=== PATIENT | female | born 1970 | race Caucasian/White ===

== ENCOUNTER 2024-08-20 00:08 | Day surgery (SDC) | payer BC, SELFPAY ==
[2024-08-16 13:53] VITALS: BMI 23.8
--- NOTE | 2024-08-16 14:02 | PC.NURSE ---
Report to the Outpatient Waiting Room, entrance under the green pavilion located off [facility], at time _1000_ on date _[id number]_. Planned Procedure Time: _1200_.? Time changes happen often and if your time is changed the preop area will call you the afternoon before. - You and your visitor will be asked to self-screen and do not enter if you have any COVID symptoms. Please call surgeon if you need to reschedule. - A mask is optional within the hospital at this time. Patients may have clear liquids (water, carbonated beverages, clear teas, apple juice) until 3 hours prior to surgery with a maximum of 20 ounces. - No food from midnight until time of surgery and no smoking, or chewing tobacco (or any form of nicotine). No chewing gum, candy or mints. Take only the following medications with a SIP of water on the morning of surgery: __None___ DO NOT STOP ANY OF YOUR OTHER PRESCRIPTION MEDICATIONS PRIOR TO SURGERY EXCEPT THE FOLLOWING Hold all vitamins and supplements for 3 days per anesthesiologist. Medications to discontinue per physician Date to take last dose Please no make-up, nail icelandic, hairspray, perfume, deodorant, or body powder the day of surgery.? No jewelry (including any body piercings) or valuables the day of surgery, leave them at home.? Please take a shower or bath the night before, or the morning of, surgery with an antibacterial soap.? Wear comfortable, loose fitting clothing. - Jewelry must be removed prior to entering the operating room.? Rings and piercings that are not removed may be cut off. - The hospital will not accept responsibility for valuables.? - Please leave all valuables, including medications, at home the day of surgery. If you are going home after surgery, a licensed ups driver must drive you home.? - NO public transportation without another adult if you receive anesthesia. - We recommend that an adult stay with you for 24 hours following discharge. - We also recommend that you do not drive, make important decision, drink alcoholic beverages, or take any drugs that were not prescribed by your health care provider for at least 24 hours after your discharge time. Follow any additional instructions given to you from your surgeon. Telephone instructions given to __Penny___and asked if any additional questions and then verbalized understanding. Patient advised to call surgeon office or pre surgery nurse liaison [phone] if any additional questions.
--- OUTSIDE RECORDS SUMMARY | 2024-08-20 00:11 | XMS_ITS | Clinical Summary ---
Author Organization [facility] Address [address] [place] [address] Care Team Providers Care Finisher Accordion Name Role Phone Unavailable Primary Care Provider Unavailabl e Allergies No known active allergies Medications No known medications Active Problems No known active problems Social History Tobacco Use Types Packs/Day Years Used Date Smoking Tobacco: Never Assessed Comments Unknown Sex and Gender Information Value Date Recorded Sex Assigned at Not on file Legal Sex Female 7:59 PM CARE CENTER MANAGER Gender Identity Not on file Sexual Orientation Not on file Last Filed Vital Signs Vital Sign Reading Time Taken Comments Blood Pressure 122/75 03/07/2021 4:01 PM CARE CENTER MANAGER Pulse 83 03/07/2021 4:01 PM CARE CENTER MANAGER Temperature 36.3 C (97.3 F) 03/07/2021 4:01 PM CARE CENTER MANAGER Respiratory Rate 16 03/07/2021 4:01 PM CARE CENTER MANAGER Oxygen Saturation 99% 03/07/2021 4:01 PM CARE CENTER MANAGER Inhaled Oxygen Concentration - - Weight - - Height - - Body Mass Index - - Plan of Treatment Health Maintenance Due Date Last Done Comments DTAP/TDAP/TD VACCINES (1 - Tdap) 01/17/1987 HEPATITIS B VACCINES (1 of 3 - 19+ 3-dose series) 01/17/1987 BREAST CANCER SCREENING 2008 COLORECTAL SCREENING 01/17/2013 Colorectal Cancer Screening 01/17/2013 FIT-DNA Q 3 years 01/17/2013 FIT/FOBT Q 1 year 01/17/2013 Flex Sig/CT Colonography Q 5 years 01/17/2013 ZOSTER VACCINE (1 of 2) 01/17/2018 INFLUENZA VACCINE (#1) 2023 2, 12/28/2019, 01/31/2019, Additional history exists COVID-19 Vaccine (2023-2 5 season) 2023 08/08/2021, 02/10/2021 Insurance [facility]
--- OUTSIDE RECORDS SUMMARY | 2024-08-20 00:11 | XMS_ITS | Continuity of Care Document ---
Author Organization [facility] Address [address] [place] [address] Phone Care Team Providers Care Poultry Inseminator Name Role Phone Volodymyr Solano DO Unavailable Unavailable Allergies, Adverse Reactions, Alerts Substance Reaction Status Criticality No Known Allergies Active No Inform ation Medications Medication Instructions Dosage Effective Dates (start - stop) Status Comments terbinafine HCl 1 % topical cream APPLY 1 APPLICATION TOPICALLY TO THE AFFECTED AREA DAILY UNTIL RESOLUTION UP TO 2 WEEKS - Active BinaxNOW COVID-19 Ag Self Test kit TEST DIRECTED TODAY - Active estradiol 0.05 mg/24 hr semiweekly transdermal patch - Active Procedures Procedure Date Betamethasone acet&sod phosp DRAIN/INJECT JOINT/BURSA OFFICE/OUTPATIENT VISIT EST OFFICE/OUTPATIENT VISIT NEW Advance Directives Directive Yes / No Effective Date File Name No Information Encounters Encounter Description Practice Location Reason(s) For Visit Diagnoses Date Provider Providers Copied on Encounter OFFICE/OUTPAT IENT VISIT EST [facility] , [address], [place], [address], [place] tel:[phone] [facility] elbow (chief complaint) Ulnar collateral ligament sprain of right elbow, initial encounter 2 Xiomara Helm. [address], [place], [place], [id number] , [place]. tel:[phone] Referring Provider: Bear Oakes, Tammy [facility] [address], [place], [address] . tel:[phone] [facility] , [address], [place], [address], [place] tel:[phone] [facility] No Information 2 [facility] Voldoy[facility]r. [address], [place], [place], [id number] , [place]. tel:[phone] OFFICE/OUTPAT IENT VISIT NEW [facility] , [address], [place], [address], [place] tel:[phone] [facility] elbow (chief complaint) Tendinopathy of right elbow 2 [facility] Volodymyr. [address], [place], [place], [id number] , . tel:[phone] Referring Provider: Bear Oakes, [address] [place] [address] [address], [place], [address] . tel:[phone] Family History Family Member Type Diagnosis Age At Onset No Information Payers Payer name Insurance type Covered democrat ID Authorjulia dora(s) Blue Access PPO E2 OT [id number] Social History Type Description Quantity Date Captured Comments Alcohol Use Details Unknown Caffeine Use Details Unknown Tobacco Use Status Current non-smoker Smoking Status Never smoker Sex Female Chief Complaint And Reason For Visit From encounter dated '01/26/2022 13:20'. elbow (chief complaint) Reason For Referral Reason For Referral No Information Plan Of Treatment Date Type Action Status Referral Ordered: MRI JT Upper w/o Contrast RT elbow ordered History Of Present Illness Encounter Date Complaint History Of Prese nt Illness Comments: Lori is a 52-year-old female who presents today for an evaluation of medial elbow pain with activity; however not at rest. elbow Comments: Lori Duke is a 51-year-old, right-hand dominant female who presents for right elbow pain. The patient reports elbow pain for greater than ten years. She denies any known injury. The patient denies taking any mediation for pain relief. She was recently diagnosed with osteopenia by a DEXA scan. The patient is unsure if they checked her vitamin D level. She currently takes an unknown amount calcium and she denies taking any vitamin D. After having a liver biopsy performed, she became vasovagal. The patient is postmenopausal. The patient played softball as a teenager in high school. 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 elbow Functional Status Date Functional Assessmen t No Information Instructions Date Instruction Additional Infor mation Right medial elbow p ain.Treatment today consists of an injection. 1 cc of Betamethasone over the distal humerus with gentle needling of the medial LCL. Activity modification for the next 3 weeks. The patient will follow-up with me in 6 weeks if her pain is not improving. We discussed PRP. The medical record documentation of this provider's service encounter was entered by Krys Gardner, acting as Director Design for Volodymyr Solano DO.The documentation recorded by the medical office worker accurately reflects the evaluation, management, and related clinical services I personally performed. The plan and decisions were made by me. Related to Ulnar collateral ligament sprain of right elbow, initial encounter We will schedule an MRI of the right elbow. The medical record documentation of this provider's service encounter was entered by Jacqueline Santiago, acting as Director Design for Volodymyr Solano DO.The documentation recorded by the medical office worker accurately reflects the evaluation, management, and related clinical services I personally performed. The plan and decisions were made by me. Related to Tendinopathy of right elbow Assessments Type Assessment Date assessment Ulnar collateral lig ament sprain of right elbow, initial encounter Patient Care Teams Name Effective Dates (start - stop) Status Members No Information
--- OUTSIDE RECORDS SUMMARY | 2024-08-20 00:11 | XMS_ITS | Referral Summary ---
Author Organization [facility] [address] Address [facility] [place] [address] Care Team Providers Care Musical Instruments Assembler Name Role Phone Jarvis Caldwell MD Primary Care Provi farhad Allergies No known active allergies Medications No known medications Active Problems No known active problems Immunizations Immunization Administration Dates Next Due Td, adsorbed 12/18/1997 Social History Tobacco Use Types Packs/Day Years Used Date Smoking Tobacco: Never Assessed Alcohol Use Standard Drinks/Week Comments Yes 0 (1 standard drink = 0.6 oz pur e alcohol) Comments Unknown Sex and Gender Information Value Date Recorded Sex Assigned at Not on file Legal Sex Female 11:58 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 Gender Identity Not on file Sexual Orientation Not on file Last Filed Vital Signs Vital Sign Reading Time Taken Comments Blood Pressure 124/80 05/21/2021 10:30 AM LIQUID 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 Pulse 66 05/21/2021 10:30 AM LIQUID 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 Temperature 36.5 C (97.7 F) 05/21/2021 10:30 AM LIQUID 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 Respiratory Rate 16 05/21/2021 10:30 AM LIQUID 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 Oxygen Saturation 100% 05/21/2021 10:30 AM LIQUID 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 Inhaled Oxygen Concentration - - Weight 63.5 kg (140 lb) 05/21/2021 10:30 AM LIQUID 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 Height 165.1 cm (5' 5) 05/21/2021 10:30 AM LIQUID 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 Body Mass Index 23.3 05/21/2021 10:30 AM LIQUID 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 Plan of Treatment Not on file Insurance [employer] [place] Care Teams Musical Instruments Assembler Relationship Specialty Start Date End Date Jarvis Caldwell MD PCP - General 09/29/09
--- OUTSIDE RECORDS SUMMARY | 2024-08-20 00:11 | XMS_ITS | Clinical Summary ---
Author Organization [facility] [address] Address [facility] [place] [address] Care Team Providers Care Set And Exhibit Designer Name Role Phone Jarvis Caldwell MD Primary Care Provi farhad Allergies No known active allergies Medications No known medications Active Problems No known active problems Immunizations Immunization Administration Dates Next Due Td, adsorbed 12/18/1997 Surgical History Surgery Date Site/Laterality Comments HYSTERECTOMY Hysterectomy Social History Tobacco Use Types Packs/Day Years Used Date Smoking Tobacco: Never Assessed Alcohol Use Standard Drinks/Week Comments Yes 0 (1 standard drink = 0.6 oz pur e alcohol) Comments Unknown Sex and Gender Information Value Date Recorded Sex Assigned at Not on file Legal Sex Female 11:58 AM AUTO 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 Gender Identity Not on file Sexual Orientation Not on file Obstetrics History Last Filed Vital Signs Vital Sign Reading Time Taken Comments Blood Pressure 124/80 05/21/2021 10:30 AM AUTO GARAGE ATTENDANT Pulse 66 05/21/2021 10:30 AM AUTO GARAGE ATTENDANT Temperature 36.5 C (97.7 F) 05/21/2021 10:30 AM AUTO GARAGE ATTENDANT Respiratory Rate 16 05/21/2021 10:30 AM AUTO GARAGE ATTENDANT Oxygen Saturation 100% 05/21/2021 10:30 AM AUTO GARAGE ATTENDANT Inhaled Oxygen Concentration - - Weight 63.5 kg (140 lb) 05/21/2021 10:30 AM AUTO GARAGE ATTENDANT Height 165.1 cm (5' 5) 05/21/2021 10:30 AM AUTO GARAGE ATTENDANT Body Mass Index 23.3 05/21/2021 10:30 AM AUTO GARAGE ATTENDANT Plan of Treatment Health Maintenance Due Date Last Done Comments Breast Cancer Screening-Mammogram 1968 Colon Cancer Screening-Colonoscopy 1968 Depression Screening 1968 Hepatitis C Screening 1968 Regular Well Visit/Exam 18-64 01/17/1986 DTaP/Tdap/Td Vaccine (1 - Tdap) 12/19/1997 12/18/1997 Zoster Vaccine (1 of 2) 01/17/2018 Covid-19 Vaccine (2 - 2023-2 5 season) 2023 02/10/2021 Influenza Vaccine (Season Ended) 2024 02/10/2021 Hepatitis B Screening Completed 05/15/2021 , 04/09/2021 Pneumococcal vaccine <65 Aged Out No longer eligible based on patient's age to complete this topic Insurance [facility] Care Teams Set And Exhibit Designer Relationship Specialty Start Date End Date Jarvis Caldwell MD PCP - General 09/29/09
--- OUTSIDE RECORDS SUMMARY | 2024-08-20 00:11 | XMS_ITS | Clinical Summary ---
Author Organization [facility] Address [address] [place] [address] Care Team Providers Care Supervisor Pig Machine Name Role Phone Beckie Roldan RN Unavailable Unavailable Boris Dumont MD Unavailable [phone] Gloria Green MD Primary Care Provider [phone] Source Comments [facility],non-owned Affiliates and Associated Physician Practices is amultiple site organization consisting of ambulatory clinics and hospital sitesin [place], [place], [place] and [place]. This disclosure is being madepursuant to the Care Everywhere program and may not contain all information available regarding this patient. Last updated 17.[facility] Allergies No known active allergies Medications * Be aware that medications may not be up to date on this document. Alwaysverify current medications with the patient. estradiol (Vivelle-Dot) 0.05 MG/24HR patch APPLY 1 PATCH TOPICALLY TO THE SKIN 2 TIMES EVERY WEEK 2 Active Aspirin 81 MG CAPS Take 1 capsule by mouth once daily Active albuterol HFA (Proventil; Ventolin; Proair) 108 (90 Base) MCG/ACT inhaler Inhale 2 (two) puffs by mouth every 6 hours as needed for Shortness of Breath, Wheezing or Cough 8 g 3 Active Active Problems Problem Noted Date Diagnosed Date History of adenomatous polyp of colon - multiple polyps, large polyps 01/15/2022 Overview (01/15/2022): Dr. Bowden/GI 01/09 x3 (13 mm mid ascending, piecemeal, tattooed) Elevated liver enzymes 02/25/2021 Overview (11/24/2021): Per her report, noted since summer03/24/2021 US normal. U/S elastography with Median liver stiffness 6.46 kPa, average is 5.7kPa (mild-moderate) 05/22/2021 Liver Biopsy - Minimal histologic alterations, No cirrhosis or significant fibrosis 11/24/2021 Fibroscan CAP 191, LSM 3.9 kPa Encounters Date Type Department Care Team Description 08/06/2024 Telephone [facility] - Family Medicine [address] [place] [phone] Malika Rand PA-C Appointment (Pt has upcoming well appt with you, and is asking to go to [facility] to have labs drawn prior to appointment. Can you put order in for quest, or would you prefer to see her first and place order during appt? Please advise.) 07/17/2024 Orders Only [facility] - GI [address] [place] [address] Justo Bowden MD Hx of colonic polyp 06/18/2024 2:54 PM CDT - 06/18/2024 11:59 PM CDT Hospital Encounter [facility] - Ultrasound [address] [place] [phone] Gloria Green MD Discharge Disposition: Home or Self Care 06/18/2024 2:18 PM CDT - 06/18/2024 2:53 PM CDT Hospital Encounter [facility] Breast Care [address] [place] [phone] Gloria Green MD Discharge Disposition: Home or Self Care 06/14/2024 Travel from Last 3 Months Immunizations Immunization Administration Dates Next Due INFLUENZA VACCINE, QUADR. (F LUZONE; FLULAVAL; FLUARIX; AFLURIA QUADRIVALENT; 6MO+), 0.5 ML (IIV4) 02/10/2021 Td (Adult), 2 Lf Tetanus Toxoid, Adsorbed, Pf Family History * Patient is adopted Medical History Relation Name Comments Cancer - Colon Neg Hx Colon polyps Neg Hx Malignant Hyperthermia Neg Hx Social History Tobacco Use Types Packs/Day Years Used Date Smoking Tobacco: Never Smokeless Tobacco: Never Tobacco Cessation:Counseling Given: Not Answered Alcohol Use Standard Drinks/Week Comments Yes 14 (1 standard drink = 0.6 oz pu re alcohol) PHQ-2 Answer Date Recorded PHQ2 TOTAL SCORE 0 05/09/2022 Comments No Sex and Gender Information Value Date Recorded Sex Assigned at Female 02/20/2021 6:46 AM SENIOR NATIONAL ACCOUNT MANAGER Legal Sex Female 9:51 AM SENIOR NATIONAL ACCOUNT MANAGER Gender Identity Female 02/20/2021 6:46 AM SENIOR NATIONAL ACCOUNT MANAGER Sexual Orientation Not on file Last Filed Vital Signs Vital Sign Reading Time Taken Comments Blood Pressure 141/78 05/09/2022 11:20 AM SENIOR NATIONAL ACCOUNT MANAGER Pulse 88 05/09/2022 11:20 AM SENIOR NATIONAL ACCOUNT MANAGER Temperature 36.2 C (97.2 F) 05/09/2022 11:20 AM SENIOR NATIONAL ACCOUNT MANAGER Respiratory Rate 16 05/09/2022 11:20 AM SENIOR NATIONAL ACCOUNT MANAGER Oxygen Saturation 100% 05/09/2022 11:20 AM SENIOR NATIONAL ACCOUNT MANAGER Inhaled Oxygen Concentration - - Weight 65.3 kg (144 lb) 06/18/2024 2:37 PM CDT Height 165.1 cm (5' 5) 06/18/2024 2:37 PM CDT Body Mass Index 23.96 06/18/2024 2:37 PM CDT Plan of Treatment Upcoming Encounters Date Type Department Care Team (Late st Contact Info) Description 08/24/2024 9:30 AM CDT Procedure visit [facility] - GI [address] [place] [address] 09/05/2024 1:00 PM CDT Office Visit [facility] - Family Medicine [address] [place] [phone] Malika Rand PA-C [address] [place] [phone] Health Maintenance Due Date Last Done Comments COLOGUARD (AGES 45-75) - COLON CA SCREENING 1970 CT COLONOGRAPHY - COLON CA SCREENING 1970 FIT - COLON CA SCREENING 1970 FLEX SIG - COLON CA SCREENING 1970 LIPID TESTING 1970 HIV SCREENING 01/17/1983 HEPATITIS B VACCINE (1 of 3 - 19+ 3-dose series) 01/17/1987 DTAP/TDAP/TD VACCINES (1 - Tdap) 12/19/1997 12/18/1997 PNEUMOCOCCAL VACCINE 50+ (1 of 1 - PCV) 01/17/2018 ZOSTER VACCINE (1 of 2) 01/17/2018 PAP SMEAR 05/08/2022 05/08/2019, 05/08/2019 COLON MONITORING 01/15/2023 01/15/2022, 01/15/2022 Colorectal Cancer Screening 01/15/2023 COVID-19 VACCINE ( season) 2023 08/08/2021, 02/10/2021, 06/06/2020, Additional history exists DEPRESSION SCREENING 03/21/2024 05/09/2022 MAMMOGRAM 06/18/2026 06/18/2024, 12/20, 11/06/2021, Additional history exists COLONOSCOPY - COLON CA SCREENING 01/16/2032 01/15/2022 HEPATITIS C SCREENING Completed 04/15/2021 INFLUENZA VACCINE Completed 02/02/2024, , 02/10/2021, Additional history exists HIB VACCINE Aged Out No longer eligi ble based on patient's age to complete this topic HPV VACCINE Aged Out No longer eligi ble based on patient's age to complete this topic MENINGOCOCCAL (Group B) VACCINE SHARED DECISION-MAKING Aged Out No longer eligible based on patient's age to complete this topic MENINGOCOCCAL GROUPS A/C/Y/W VACCINE Aged Out No longer eligible based on patient's age to complete this topic Goals Goal Patient Goal Type Associated Problems Recent Progress Patient-Stated? Author Medication Management General On track( 022 2:48 PM SENIOR NATIONAL ACCOUNT MANAGER) No Beckie Roldan RN Note: Expected end date: ongoing Interventions: Take all medications as prescribed Procedures Procedure Name Priority Date/Time Associated Diagnosis Comments US BREAST RIGHT LTD Routine 06/18/2024 2:59 PM CDT Mass of right breast, unspecified quadrant MAMMO BILAT DIAGNOSTIC W GIANFRANCO Routine 06/18/2024 2:40 PM CDT Mass of right breast, unspecified quadrant ENDOSCOPY, COLON, SCREENING Routine 01/15/2022 Screen for colon cancer HEPATITIS C AB W/RFLX TO HCV RNA QN PCR Routine 04/15/2021 11:37 AM SENIOR NATIONAL ACCOUNT MANAGER Elevated liver enzymes Hepatic fibrosis from Last 3 Months or Most Recently Relevant to Health Maintenance Results * US BREAST RIGHT LTD (most commonly ordered,not the whole breast) (06/18/2024 2:59 PM CDT) Anatomical Region Laterality Modality Breast Right Ultrasound 06/18/2024 2:45 PM CDT Impressions 06/18/2024 3:18 PM CDT IMPRESSION: No mammographic or sonographic evidence of malignancy. No imaging explanation for the reported signs/symptoms. OVERALL BI-RADS ASSESSMENT: BI-RADS Category 1: Negative Examination Recommendation: Routine yearly mammography schedule for women over age 40 or return sooner if clinically indicated. Edited by Nayla Wills on 06/18/2024 3:02 PM > Interpreting Provider: Aubrey Newby MD on 06/18/2024 3:18 PM Narrative 06/18/2024 3:18 PM CDT PROCEDURE: MAMMO BILAT DIAGNOSTIC W GIANFRANCO, US BREAST RIGHT LTD CLINICAL INFORMATION (none relevant/not provided if blank): Indication: N63.10: Unspecified lump in the right breast, unspecified quadrant Additional History: Most recent comparison: 2022. TECHNIQUE: MAMMO BILAT DIAGNOSTIC W GIANFRANCO, US BREAST RIGHT LTD 1. Diagnostic mammography including 3D mammographic tomosynthesis imaging was performed. Images were interpreted with CAD. Standard views include at minimum: CC and MLO. 2. Real-time ultrasound of the breast(s) with DICOM image capture as performed by the technologist and supervised by radiologist. This is a focused examination and not a breast screening protocol. FDA recommends a single BI-RADS assessment for same day multi-modality imaging. To facilitate optimal patient care, this single report includes interpretation of multiple exams: see appropriate subsections. FINDINGS: 1. MAMMOGRAPHY: Breast composition: The breasts are heterogeneously dense, which may obscure small masses. No suspicious microcalcifications, masses or areas of architectural distortion. There are non suspicious punctate and coarse calcifications; these reduce exam sensitivity for detection of new or developing suspicious microcalcifications. 2. ULTRASOUND 2:00-4:00 was interrogated. No suspicious cystic, solid or inflammatory appearing lesions identified with this technique. us Gloria Green MD US ORDERABLES Final Result * Mammo Bilat Diagnostic W Gianfranco (06/18/2024 2:40 PM CDT) Anatomical Region Laterality Modality Breast Bilateral Mammography 06/18/2024 2:45 PM CDT Impressions 06/18/2024 3:18 PM CDT IMPRESSION: No mammographic or sonographic evidence of malignancy. No imaging explanation for the reported signs/symptoms. OVERALL BI-RADS ASSESSMENT: BI-RADS Category 1: Negative Examination Recommendation: Routine yearly mammography schedule for women over age 40 or return sooner if clinically indicated. Edited by Nayla Wills on 06/18/2024 3:02 PM > Interpreting Provider: Aubrey Newby MD on 06/18/2024 3:18 PM Narrative 06/18/2024 3:18 PM CDT PROCEDURE: MAMMO BILAT DIAGNOSTIC W GIANFRANCO, US BREAST RIGHT LTD CLINICAL INFORMATION (none relevant/not provided if blank): Indication: N63.10: Unspecified lump in the right breast, unspecified quadrant Additional History: Most recent comparison: 2022. TECHNIQUE: MAMMO BILAT DIAGNOSTIC W GIANFRANCO, US BREAST RIGHT LTD 1. Diagnostic mammography including 3D mammographic tomosynthesis imaging was performed. Images were interpreted with CAD. Standard views include at minimum: CC and MLO. 2. Real-time ultrasound of the breast(s) with DICOM image capture as performed by the technologist and supervised by radiologist. This is a focused examination and not a breast screening protocol. FDA recommends a single BI-RADS assessment for same day multi-modality imaging. To facilitate optimal patient care, this single report includes interpretation of multiple exams: see appropriate subsections. FINDINGS: 1. MAMMOGRAPHY: Breast composition: The breasts are heterogeneously dense, which may obscure small masses. No suspicious microcalcifications, masses or areas of architectural distortion. There are non suspicious punctate and coarse calcifications; these reduce exam sensitivity for detection of new or developing suspicious microcalcifications. 2. ULTRASOUND 2:00-4:00 was interrogated. No suspicious cystic, solid or inflammatory appearing lesions identified with this technique. us Gloria Green MD MAMMO ORDERABLES Final Result * ENDOSCOPY, COLON, SCREENING (01/15/2022) us Justo Bowden MD GI PROCEDURE ORDERABLES Final Result [facility] RESULT SCAN * HEPATITIS C AB W/RFLX TO HCV RNA QN PCR (04/15/2021 11:37 AM SENIOR NATIONAL ACCOUNT MANAGER) Hepatitis C Antibody NON-REACTI VE NON-REACT [facility] Signal to Cut-Off 0.01 <1.00 [facility] Comment: HCV antibody was non-reactive. There is no laboratory evidence of HCV infection. In most cases, no further action is required. However, if recent HCV exposure is suspected, a test for HCV RNA (test code 65280) is suggested. For additional information please refer to http://education.Praedicat/faq/RNF17g0 (This link is being provided for informational/ educational purposes only.) REPORT COMMENT: FASTING:NO Test Performed at: [facility] [address] [place] [address] WESTON MONGE DO,MPH Blood BLOOD SPECIMEN / Unknown 04/15/2021 11:37 AM SENIOR NATIONAL ACCOUNT MANAGER 04/15/2021 11:40 AM SENIOR NATIONAL ACCOUNT MANAGER Boris Dumont MD LAB - CHEMISTRY ORDERABLES Fi nal Result [facility] [address] [place] [address] from Last 3 Months or Most Recently Relevant to Health Maintenance Insurance ANTHEM ANTHEM Care Teams Supervisor Pig Machine Relationship Specialty Start Date End Date Gloria Green MD [address] [place] [id number] PCP - General Obstetrics and Gynecology 06/18/24 Beckie Roldan, RN Registered Nurse 02/25/21 Boris Dumont MD [address] [place] [phone] Skilled Nursing Case Manager Gastroenterology 02/25/21
[2024-08-20 10:45] VITALS: BP 123/84; PULSE 71; RESP 14; TEMP 36.6; O2SAT 100
--- NOTE | 2024-08-20 11:31 | WPDANESEPPF ---
Anes - Initial Pre Proc Eval Procedure: Operation Date: 08/20/24 12:00 Proposed Procedures p Excision Left Forearm Masses Times Two, Left Thigh Mass Times Five - Arvind Askew DO Date/Time: 08/20/24 11:31 Surgeon: Arvind Askew DO Pre Op Diagnosis: Lt Forearm Mass 2(1.2cm)(1.5) Lt Thigh Mass x5 Patient Data Age: 54 Gender: F Height: 1.65 m Weight: 66.9 kg Last Vital Signs Temp 36.6 C 08/20/24 10:45 Pulse 71 08/20/24 10:45 Resp 14 08/20/24 10:45 BP 123/84 08/20/24 10:45 Pulse Ox 100 08/20/24 10:45 Allergies Allergy/AdvReac Type Severity Reaction Status Date / Time No Known Allergies Allergy Verified 08/20/24 10:54 Home Medications ?Medication ?Instructions ?Recorded ?Confirmed ?Type aspirin 81 mg tablet,delayed 81 mg PO DAILY 07/16/24 08/20/24 History release (Adult Aspirin Regimen) estradiol 0.05 mg/24 hr semiweekly 1 patch transdermal 2XW 07/16/24 08/16/24 History transdermal patch (Marilu) fexofenadine 180 mg tablet 180 mg PO DAILY 08/16/24 08/16/24 History (Lucina Allergy) Patient hx anesthesia problems: none Family hx anesthesia problems: none Results Review: All pre-operative results and documents have been reviewed as part of the pre-operative evaluation. [facility] Past Medical History Medical History Fatty liver Surgical History Surgical History Hx of hysterectomy 2001 Social History Social History Smoking status: Never smoker Alcohol intake: current Drinks per week: 7 Alcohol use details: 7 full 8-14/ week Substance use: never Current Housing: Decline to Answer Concerned About Future Housing: Decline to Answer Difficulty Paying Gas/Electric Bills: Decline to Answer Difficulty Paying for Meds: Decline to Answer Currently Unemployed: Decline to Answer Difficulty w/ Childcare or Family Care: Decline to Answer Occupation/Education: occupation Anes - Eval Final PreProcedure Day of Procedure 08/20/24 11:31 Patient weight: normal Heart: regular rate and rhythm Lungs: clear to auscultation Airway: Mallampati scale class II Neurological: alert and oriented Last oral intake: >/= 8 hours ASA classification: II Emergent: no Anesthetic plan: proceed Anesthesia type and monitoring: general GIVS and standard monitoring Results Review: All pre-operative results and documents have been reviewed as part of the pre-operative evaluation. Informed Consent: The patient's anesthetic plan and its attendant risks and benefits were discussed with the patient/family/POA. Questions were solicited and answers provided to the satisfaction of the patient/family/POA.
[2024-08-20] MEDS: LACTATED RINGERS 1,000 ML 30 ML IV CONT ×2 (11:50→13:33)
--- NOTE | 2024-08-20 11:55 | P.HP_ITS ---
H&P: HPI History of Present Illness Date/Time: 08/20/24 11:55 Chief Complaint: left arm and left leg masses Narrative: 54 yo woman presents for excision of multiple masses. She was seen and preop and all masses were identified and confirmed with patient. There are a total of 3 left forearm masses and 6 left thigh masses. She reports no other changes since seen in office. Review of Systems Review of Systems: All systems reviewed & are unremarkable except as noted in HPI and below Constitutional: Constitutional: Denies chills, Denies fever(s), Denies headache(s) and Denies weight loss Eyes: Eyes: Denies change in vision ENT: Denies dizziness, Denies headache(s), Denies neck mass and Denies throat swelling Cardiovascular: Cardiovascular: Denies chest pain, Denies lightheadedness and Denies dyspnea Respiratory: Respiratory: Denies cough, Denies dyspnea and Denies wheezing Gastrointestinal: Gastrointestinal: Denies abdominal pain, Denies change in bowel habits, Denies nausea and Denies vomiting Genitourinary: Genitourinary: Denies hematuria and Denies dysuria Musculoskeletal: Musculoskeletal: Reports as per HPI Integumentary/Breasts: Skin/Breast: Reports as per HPI Neurologic: Denies dizziness and Denies headache(s) Allergic/Immunologic: Allergic/Immunologic: Denies throat swelling and Denies wheezing [facility] Past Medical History Medical History Fatty liver Surgical History Surgical History Hx of hysterectomy 2001 Social History Social History Smoking status: Never smoker Alcohol intake: current Drinks per week: 7 Alcohol use details: 7 full 8-14/ week Substance use: never Current Housing: Decline to Answer Concerned About Future Housing: Decline to Answer Difficulty Paying Gas/Electric Bills: Decline to Answer Difficulty Paying for Meds: Decline to Answer Currently Unemployed: Decline to Answer Difficulty w/ Childcare or Family Care: Decline to Answer Occupation/Education: occupation Meds Home Medications and Allergies Home Medications ?Medication ?Instructions ?Recorded ?Confirmed ?Type aspirin 81 mg tablet,delayed 81 mg PO DAILY 07/16/24 08/20/24 History release (Adult Aspirin Regimen) estradiol 0.05 mg/24 hr semiweekly 1 patch transdermal 2XW 07/16/24 08/16/24 History transdermal patch (Marilu) fexofenadine 180 mg tablet 180 mg PO DAILY 08/16/24 08/16/24 History (Lucina Allergy) Allergies Allergy/AdvReac Type Severity Reaction Status Date / Time No Known Allergies Allergy Verified 08/20/24 10:54 Vital Signs Vital Signs - 24 hr 08/20/24 10:45 Temperature 98 F Pulse Rate 71 Respiratory Rate 14 Blood Pressure 123/84 Pulse Oximetry 100 Exam Const: General: no acute distress and alert Orientation/consciousness: patient oriented x3 HENMT: Head: normocephalic and atraumatic Ears: hearing grossly normal bilaterally Face/Nose/Sinus: Normal nares present Mouth: Yes Normal oral and palatal mucosa present Eyes: Periorbital: periorbital findings normal Sclera: sclerae normal EOM: EOMs intact bilaterally Neck: Neck: normal visual inspection, no lymphadenopathy and trachea midline Chest: Chest palpation & inspection: normal inspection of the chest Resp: Effort & Inspection: normal respiratory effort Auscultation: clear to auscultation bilaterally Cardio: Jugular venous distension: no JVD Rate: regular rate Rhythm: regular rhythm Heart sounds: S1 normal heart sound present and S2 normal heart sound present Peripheral pulses: Peripheral pulses 2+ throughout GI: Inspection: normal to inspection GI Palp: Yes Soft to palpation, No Tenderness to palpation present (GI), No Guarding due to palpation present (GI) and No Rebound tenderness present Percussion: Yes normal to percussion Auscultation: normal bowel sounds : General: Yes no CVA tenderness Back/Spine/Pelvis: Back: no CVA tenderness Skin: Other: multiple masses on left forearm ranging in size from 0.5cm to 1.5cm. Multiple masses on left thigh ranging from 0.5cm to 3.5cm. All consistent with lipomas. Neuro: General: patient oriented x3, no focal motor deficits and CN's II-XI intact bilaterally Cognition (Neuro): normal cognition Speech: normal speech Motor exam (neuro): 5/5 motor strength present throughout Extrem: General: capillary refill normal and no clubbing, cyanosis or edema Assessment and Plan Assessment and plan (1) Subcutaneous mass of left forearm: Code(s): R22.32 - Localized swelling, mass and lump, left upper limb Status: Acute Assessment and Plan: I have recommended excision of left forearm mass x3 and left thigh mass x6. I have discussed the procedure, risks, benefits, and alternatives with the nick mckenna. All questions answered. No changes since last seen in office. (2) Mass of left thigh: Code(s): R22.42 - Localized swelling, mass and lump, left lower limb Status: Acute
--- NOTE | 2024-08-20 11:55 | WPDHPUPDATE1 ---
History and Physical Update Update Date/Time: 08/20/24 11:55 History and Physical has been reviewed, including an updated exam of the patient. There are NO changes in the patient's condition. Risks, benefits, and alternatives have been discussed and questions answered. Patient agrees to proceed with procedure.
[2024-08-20] MEDS: ceFAZolin 2 GM/D5W 50 ML 2 GM/50 ML BAG IVPB (12:05)
[2024-08-20] MEDS: LIDO 1%/EPINEPHRINE 1:100,000 50 ML VIAL 30 ML INFILTRATE (12:05)
--- NOTE | 2024-08-20 12:32 | S_PTH ---
PATIENT: Lori Duke LOC: [facility] U#:[id number] AGE/SX: 54/F ROOM: RE08/20/[address]: Arvind Askew DO : 1970 BED: DIS: 08/20/2024 SPEC #: [id number] RECD: 08/20/24 14:13 STATUS: JANESSA REQ #: [id number] BREN: 08/20/24 12:[address]: Arvind Askew DEPT: [facility] Surgical RECD BY: Linda Platt ENTERED: 08/20/24 14:13 SP TYPE: Surgical OTHR DR: OPERATING SYSTEMS PROGRAMMER PHYSICIAN Tissues: A - Mass B - Mass Procedures: Hematoxylin and Eosin Stain Gross and Microscopic Level 3
--- NOTE | 2024-08-20 13:28 | P.OP_ITS ---
Procedure Note - Detailed Date of Procedure 08/20/24 Pre-op Diagnosis Left forearm mass x3, left thigh mass x6 Post-op Diagnosis Same Procedure Performed 1. Excision of 5 cm left leg mass 2. Excision of 2 cm left leg mass x5 3. Excision of 2 cm left arm mass 4. Excision of 1.5 cm left arm mass x2 Surgeon Arvind Askew, DO Anesthesia MAC and Local (1% lidocaine with epinephrine) Indications This is a 54-year-old woman who presented with multiple painful nodules under her skin. She has 3 areas her left forearm that are small benign tumors consistent with lipomas. She also identified 6 areas in preop on her left leg that also appeared to be small benign tumors consistent with lipomas. The size ranged from 1.5 cm to 2 cm on the left forearm 2 cm to 5 cm the left leg discussions were made with the patient treatment options and decision was made to proceed with excision of all of the discussed and marked subcutaneous masses. Findings All of the subcutaneous masses were completely excised and sent to the lab for pathology. There were 2 masses on the left forearm that each measured 1.5 cm and 1 of the masses on the left forearm measured 2 cm. There was 1 left leg mass that measured 5 cm and 5 other leg masses that measured 2 cm. All masses were completely excised sent to the lab for pathology. Description of Procedure Procedure as well as risks, benefits, and alternatives were discussed with the patient. Written consent was obtained and placed in chart prior to procedure. Patient was brought back to surgical suite. She was placed supine on operating table. Time-out was done to confirm patient and procedure. IV sedation was then administered by the anesthesia department. Her left forearm and left thigh region were prepped and draped in sterile fashion using chlorhexidine prep. 1% lidocaine with epinephrine was infiltrated locally over each premarked masses. A 2 cm incision was made over the left forearm mass using a 15 blade scalpel. Electrocautery was used for hemostasis. Blunt dissection was used to carefully dissect the mass from within the subcutaneous tissue. The mass was completely excised and sent to lab for pathology. Hemostasis was again achieved with e lectrocautery. The skin edges were then reapproximated using 4-0 Monocryl subcuticular suture. Two other left forearm masses were excised in a similar fashion. 1.5 cm incision was made over each of the remaining to masses with a 15 blade scalpel. Electrocautery was used for hemostasis. Each mass was carefully dissected free and sent to the lab for pathology. Hemostasis was achieved with electrocautery. The skin edges were reapproximated using 4-0 Monocryl subcuticular suture. The left leg masses were then addressed next. A 5 cm incision was made over the largest left leg mass using a 15 blade scalpel. The mass was carefully bluntly dissected free and carefully removed and sent to the lab for pathology. Hemostasis was then achieved with electrocautery. Careful inspection showed evidence of any other remaining masses in this region. Skin edges were then reapproximated using 4 Monocryl running subcuticular suture. The smaller 2 cm leg masses were removed in a similar fashion. A 2 cm incision was made individually over each of the 5 masses. The masses were carefully bluntly dissected free from the subcutaneous tissue and removed and sent to the lab for pathology. Hemostasis was achieved with electrocautery. No other remaining masses were palpable. The skin edges were then reapproximated using 4-0 Monocryl subcuticular suture. Exofin glue was then applied on over each of the incisions. The patient was then awakened from anesthesia and transferred to recovery. Estimated Blood Loss 5 Pathology Yes (Left forearm mass x3, left leg mass x6) Complications No immediate complications Condition Stable Disposition Same day [facility] Billing Surgery - Charge Forward: Surgery Billing
[2024-08-20 13:33] VITALS: BP 105/63; PULSE 54; RESP 14; O2SAT 99
[2024-08-20 14:00] VITALS: BP 109/61; PULSE 58; RESP 14; O2SAT 100
== END 2024-08-20 14:25 | disposition home or self-care (01) ==
PROVIDERS: Visit Provider Surgery
PROC: (CPT 25075; principal; 2024-08-20 12:00)
DX: D17.24 Benign lipomatous neoplasm of skin and subcutaneous tissue of left leg (principal); D17.22 Benign lipomatous neoplasm of skin and subcutaneous tissue of left arm
CPT/HCPCS: 25075 ×3; 27337; 27327 ×5; 88304; A9270; J0690; J2003; J2004; J2250; J2405; J2704; J3010; J7120